=== PATIENT | female | born 1975 | race Caucasian/White ===

== ENCOUNTER 2018-03-20 10:45 | Emergency (ER) | payer OTHER ==
[2018-03-20 10:58] VITALS: BP 117/78; PULSE 68; TEMP 98; BMI 24.7
--- NOTE | 2018-03-20 11:12 | PDOC ---
History of Present Illness - General Chief Complaint: Pain, Acute Stated Complaint: BACK PAIN Time Seen by Provider: 03/20/18 11:02 History Source: Patient Exam Limitations: No Limitations - History of Present Illness Initial Comments: CHIEF COMPLAINT: 42 y/o afebrile female with PMH kidney stones/infection c/o left upper back pain since yesterday. HISTORY OF PRESENT ILLNESS: The patient states last week she had some back pain but it went away. Yesterday she developed left upper back pain and middle lower abdominal pain that she states feels like the kidney infection she had in the past. She also admits to nausea. She denies fever, chills, ZIMMERMAN, v/d, CP, SOB, hematuria, dysuria. She took an Advil yesterday with no relief. Vital signs on arrival are within normal limits. REVIEW OF SYSTEMS: GENERAL/CONSTITUTIONAL: No fever/chills. No weakness. No weight change. HEAD, EYES, EARS, NOSE AND THROAT: No change in vision. No ear pain or discharge. No sore throat. CARDIOVASCULAR: No chest pain or shortness of breath. RESPIRATORY: No cough, wheezing, or hemoptysis. GASTROINTESTINAL: +nausea. +lower middle abdominal pain. No vomiting, diarrhea or constipation. GENITOURINARY: No dysuria, frequency, or change in urination. MUSCULOSKELETAL: No joint or muscle swelling or pain. No neck or back pain. SKIN: No rash or easy bruising. NEUROLOGIC: No headache, vertigo, loss of consciousness, or loss of sensation. PHYSICAL EXAM: GENERAL: The patient is awake, alert, and fully oriented, in no acute distress. She is well appearing, ambulatory, in NAD or obvious discomfort. HEAD: Normal with no signs of trauma. ENT: Pupils equal, round and reactive to light, extraocular movements intact, sclera anicteric, conjunctiva clear. Neck supple. LUNGS: Clear to auscultation bilaterally. Normal excursion. No respiratory distress or use of accessory muscles. CV: RRR, S1/S2, no MRG. Cap refill < 2 sec. ABDOMEN: Soft, non-distended, minimal suprapubic TTP, no hepatomegaly or splenomegaly, no masses. No flank pain. No rebound, guarding or rigidity. BACK: No CVA TTP b/l. Reproducible pain with palpation of lumbar paravertebral area, L1-L2 EXTREMITIES: Normal range of motion, no edema. NEUROLOGICAL: Normal speech, normal gait. CN II-XII grossly intact. SKIN: Warm, dry, normal turgor, no rashes or lesions noted. Past History - Past Medical History Allergies/Adverse Reactions: Allergies Allergy/AdvReac Type Severity Reaction Status Date / Time No Known Allergies Allergy Verified 03/20/18 10:54 Home Medications: Ambulatory Orders Ibuprofen 800 mg PO TID PRN #20 tablet 09/20/16 COPD: No Other medical history: denies. - Suicide/Smoking/Psychosocial Hx Smoking History: Never smoked Hx Alcohol Use: No Drug/Substance Use Hx: No *Physical Exam - Vital Signs Last Vital Signs Temp Pulse Resp BP Pulse Ox 98 F 68 19 117/78 99 03/20/18 10:54 03/20/18 10:54 03/20/18 10:54 03/20/18 10:54 03/20/18 10:54 ED Treatment Course - LABORATORY CBC & Chemistry Diagram: 03/20/18 11:20 03/20/18 11:20 Medical Decision Making - Medical Decision Making A/P: 42 y/o female with suprapubic and left back pain. Concerned for UTI, pyelo, kidney stone, musculoskeletal pain. Plan is as follows: 1. Labs 2. UA/culture/hcg 3. IV fluids 4. IV ofirmev and toradol 5. Kidney ultrasound Labs unremarkable. No UTI UA with 2+ blood and 23 RBCs Kidney ultrasound IMPRESSION: Minimal to mild right hydronephrosis. 0.8cm non obstructing right renal calculus. Left kidney normal. Most likely renal colic secondary to passed stone. Patient feels better. Explained all results. Will discharge to home with instructions to take Motrin for pain, drink plenty of fluids and f/u with Dr. De La Garza within 1 week. Pt instructed to return to the ER with any worsening or concerning symptoms. The patient verbalizes understanding of all instructions, has no further questions and is awaiting discharge. *DC/Admit/Observation/Transfer Diagnosis at time of Disposition: Renal colic on left side - Discharge Dispostion Disposition: HOME Condition at time of disposition: Improved - Referrals Referrals: Lashell Lagos MD [Primary Care Provider] - Chris De La Garza MD., MD [Staff Physician] - 1 week - Patient Instructions Printed Discharge Instructions: Kidney Stones -- Adult Additional Instructions: Discharge Instructions: -You have blood in your urine. -You most likely passed a small kidney stone -Everything else was normal -Please take 600mg of over the counter Ibuprofen every 6 hours with food for pain -Drink at least 64oz of water daily -Follow up with Dr. Lagos and Dr. De La Garza within 1 week -Return to the ER with any worsening or concerning symptoms Instrucciones de descarga: -Tienes sergio en tu orina. -Usted probablemente pas un pequeo clculo renal - Todo lo dems era normal - [place] 600 mg de Ibuprofeno sin receta cada 6 horas con alimentos para el dolor -Karen al menos 64 onzas de agua al da -Siga con el Dr. Lagos y el Dr. De La Garza en 1 semana -Volver a la anastacio de urgencias con cualquier empeoramiento o sntomas Print Language: LEBANESE - Post Discharge Activity Forms/Work/School Notes: Back to Work
[2018-03-20] MEDS ORDERED: ACETAMINOPHEN 1000 MG/100 ML VIAL (NON FORMULARY) IVPB ONE (11:55)
[2018-03-20] MEDS ORDERED: SODIUM CHLORIDE 1,000 ML IV STA (12:00)
[2018-03-20] MEDS ORDERED: ACETAMINOPHEN INJECTION 100 ML IVPB ONE (12:03)
[2018-03-20 12:09] LABS: BASO % 0.8 % (0-2.0); EOS % 6.8 % (0-4.5); HEMATOCRIT 37.8 % (32.4-45.2); HEMOGLOBIN 12.1 GM/dL (10.7-15.3); LYMPH % 34.7 % (8-40); MCH 27.3 pg (25.7-33.7); MEAN CELL VOLUME 85.5 fl (80-96); MEAN PLT VOLUME 9.4 fl (7.5-11.1); MONO % 7.2 % (3.8-10.2); NEUT % 50.5 % (42.8-82.8); PLATELET COUNT 281 K/MM3 (134-434); RBC 4.42 M/mm3 (3.60-5.2); RDW 13.6 % (11.6-15.6); WHITE BLOOD COUNT 7.9 K/mm3 (4.0-10.0)
[2018-03-20 12:19] LABS: URINE APPEARANCE CLOUDY; URINE BILIRUBIN NEGATIVE (<2.0 mg/dL); URINE BLOOD 2+ (NEGATIVE); URINE COLOR YELLOW; URINE GLUCOSE (UA) NEGATIVE (NEGATIVE); URINE KETONE NEGATIVE (NEGATIVE); URINE LEUK ESTERASE NEGATIVE (NEGATIVE); URINE NITRITE NEGATIVE (NEGATIVE); URINE PROTEIN NEGATIVE (NEGATIVE); URINE UROBILINOGEN NEGATIVE mg/dL (0.2-1.0)
[2018-03-20 12:24] LABS: EPI CELLS MODERATE /HPF (FEW); URINE HYALINE CAST 4 /lpf; URINE MUCUS MANY
[2018-03-20 12:29] LABS: HCG,QUALITATIVE URINE NEGATIVE
[2018-03-20] MEDS ORDERED: KETOROLAC TROMETHAMINE 30 MG/1 ML VIAL IVPUSH ONE (12:31)
[2018-03-20 12:33] LABS: ALK PHOS 56 U/L (45-117); ANION GAP 5 (8-16); BILIRUBIN,TOTAL 0.3 mg/dL (0.2-1.0); BLOOD UREA NITROGEN 14 mg/dL (7-18); CALCIUM 8.6 mg/dL (8.5-10.1); CHLORIDE 103 mmol/L (98-107); CO2 29 mmol/L (21-32); CREATININE 0.6 mg/dL (0.55-1.02); GLUCOSE,RANDOM 86 mg/dL (74-106); POTASSIUM 3.7 mmol/L (3.5-5.1); SGOT/AST 12 U/L (15-37); SGPT/ALT 17 U/L (12-78); SODIUM 137 mmol/L (136-145); TOT PROT 8.9 g/dl (6.4-8.2)
[2018-03-20] MEDS ORDERED: KETOROLAC TROMETHAMINE 30 MG/1 ML VIAL ONE (13:00)
== END 2018-03-20 14:27 | disposition home or self-care (01) ==
LOC: JER 10:45
PROC: 3E0337Z Introduction of Electrolytic and Water Balance Substance into Peripheral Vein, Percutaneous Approach (ICD-10-PCS; principal; 2018-03-20)
PROC: 3E033NZ Introduction of Analgesics, Hypnotics, Sedatives into Peripheral Vein, Percutaneous Approach (ICD-10-PCS; 2018-03-20)
PROC: 3E0333Z Introduction of Anti-inflammatory into Peripheral Vein, Percutaneous Approach (ICD-10-PCS; 2018-03-20)
DX: N13.2 Hydronephrosis with renal and ureteral calculous obstruction (principal); Z87.442 Personal history of urinary calculi
CPT/HCPCS: 36415; 76775-TC; 80053; 81003; 81015; 84703; 85025; 87086; 96361; 96374; 96375; 99284-25; J0131; J7030

== ENCOUNTER 2018-05-03 10:53 | Observation (INO) | payer OTHER ==
[2018-05-03 10:59] VITALS: BMI 25.7
--- NOTE | 2018-05-03 11:23 | PDOC ---
History of Present Illness <James Figueredo - Last Filed: 05/03/18 11:23> - General History Source: Patient Exam Limitations: No Limitations - History of Present Illness Initial Comments: 05/03/18 12:21 The patient is a 42-year-old female, with a past medical history of prediabetes and kidney stones, who presents to the ED with 3 days of right-sided abdominal pain. The patient states that the pain is constant, 10\10, radiating to her right flank, with associated nausea and dizziness. The patient denies any vomiting, diarrhea, melena, hematochezia, anorexia. Patient reports noting a small amount of blood in her urine yesterday. The patient denies any dysuria, frequency, or urgency. Denies any fever or chills. Denies shortness of breath and chest pain. Allergies: NKA Surgical History: None reported Social History: The patient reports social alcohol use. She denies any tobacco or drug use. PCP: Dr. Lashell Lagos <Farnaz Cardona - Last Filed: 05/03/18 13:38> <Gabriel Mir - Last Filed: 05/03/18 17:45> - General Chief Complaint: Pain Stated Complaint: BACK PAIN Time Seen by Provider: 05/03/18 11:23 Past History - Past Medical History COPD: No Kidney Stones: Yes - Suicide/Smoking/Psychosocial Hx Smoking History: Never smoked Have you smoked in the past 12 months: No Information on smoking cessation initiated: No Hx Alcohol Use: No Drug/Substance Use Hx: No Substance Use Type: None <James Figueredo - Last Filed: 05/03/18 11:23> <Farnaz Cardona - Last Filed: 05/03/18 13:38> <Gabriel Mir - Last Filed: 05/03/18 17:45> - Past Medical History Allergies/Adverse Reactions: Allergies Allergy/AdvReac Type Severity Reaction Status Date / Time No Known Allergies Allergy Verified 05/03/18 10:54 Home Medications: Ambulatory Orders Ibuprofen 800 mg PO TID PRN #20 tablet 09/20/16 Review of Systems - Review of Systems Able to Perform ROS?: Yes Comments:: 05/03/18 12:22 CONSTITUTIONAL: No fever, no chills, no fatigue EYES: No visual changes ENT: No ear pain, no sore throat CARDIOVASCULAR: No chest pain, no palpitations RESPIRATORY: No cough, no SOB GI: (+)Nausea, right-sided abdominal pain. No vomiting, no constipation, no diarrhea GENITOURINARY: No dysuria, no frequency, no hematuria MUSKULOSKELETAL: (+)Right-sided flank pain. No joint pain. SKIN: No rash NEURO: (+)Dizziness. No headache <Farnaz Cardona - Last Filed: 05/03/18 13:38> *Physical Exam - Vital Signs Last Vital Signs Temp Pulse Resp BP Pulse Ox 98.4 F 69 18 113/62 100 05/03/18 10:55 05/03/18 10:55 05/03/18 10:55 05/03/18 10:55 05/03/18 10:55 <James Figueredo - Last Filed: 05/03/18 11:23> - Vital Signs Last Vital Signs Temp Pulse Resp BP Pulse Ox 98.4 F 69 18 113/62 100 05/03/18 10:55 05/03/18 10:55 05/03/18 10:55 05/03/18 10:55 05/03/18 10:55 - Physical Exam Comments: 05/03/18 12:26 CONSTITUTIONAL: Well-appearing; well-nourished; in no apparent distress HEAD: Normocephalic; atraumatic EYES: PERRL; EOM intact ENMT: External appears normal; normal oropharynx NECK: Supple; non-tender; no cervical lymphadenopathy CARD: Normal S1, S2; no murmurs, rubs, or gallops RESP: Normal chest excursion with respiration; breath sounds clear and equal bilaterally; no wheezes, rhonchi, or rales ABD: (+)Right upper quadrant tenderness, mild right lower quadrant tenderness. Soft, non-distended; no palpable organomegaly, no palpable hernias MSK: (+)Right CVA tenderness. EXT: Normal ROM in all four extremities; non-tender to palpation; distal pulses intact SKIN: Warm, dry, no rash NEURO: No focal neurological deficiencies. <Farnaz Cardona - Last Filed: 05/03/18 13:38> - Vital Signs Last Vital Signs Temp Pulse Resp BP Pulse Ox 98.4 F 66 18 97/66 98 05/03/18 10:55 05/03/18 15:36 05/03/18 15:36 05/03/18 15:36 05/03/18 15:36 <Gabriel Mir - Last Filed: 05/03/18 17:45> ED Treatment Course - LABORATORY CBC & Chemistry Diagram: 05/03/18 11:58 05/03/18 11:58 - ADDITIONAL ORDERS Additional order review: Laboratory Results 05/03/18 11:58 Urine Color Ltyellow Urine Appearance Clear Urine pH 7.0 D Ur Specific [place] 1.014 Urine Protein Negative Urine Glucose (UA) Negative Urine Ketones Negative Urine Blood 3+ H Urine Nitrite Negative Urine Bilirubin Negative Urine Urobilinogen Negative Ur Leukocyte Esterase Negative Urine HCG, Qual Negative 05/03/18 11:58 RBC 4.15 MCV 85.6 MCHC 32.5 RDW 14.3 MPV 9.9 Neutrophils % 57.0 Lymphocytes % 25.4 D Monocytes % 7.2 Eosinophils % 9.5 H Basophils % 0.9 - Medications Given in the ED: ED Medications Discontinued Medications Generic Name Dose Route Start Last Admin Trade Name Wily PRN Reason Stop Dose Admin Ketorolac Tromethamine 15 mg 05/03/18 11:39 05/03/18 11:56 Toradol Injection - IVPUSH 05/03/18 11:40 15 mg ONCE ONE Administration <Farnaz Cardona - Last Filed: 05/03/18 13:38> - LABORATORY CBC & Chemistry Diagram: 05/03/18 11:58 05/03/18 11:58 - ADDITIONAL ORDERS Additional order review: Laboratory Results 05/03/18 05/03/18 11:58 11:58 Sodium 137 Potassium 4.1 Chloride 102 Carbon Dioxide 29 Anion Gap 6 L BUN 10 Creatinine 0.6 Creat Clearance w eGFR > 60 Random Glucose 85 Calcium 8.8 Total Bilirubin 0.3 AST 15 ALT 19 Alkaline Phosphatase 50 Total Protein 7.9 Albumin 3.5 Urine Color Ltyellow Urine Appearance Clear Urine pH 7.0 D Ur Specific [place] 1.014 Urine Protein Negative Urine Glucose (UA) Negative Urine Ketones Negative Urine Blood 3+ H Urine Nitrite Negative Urine Bilirubin Negative Urine Urobilinogen Negative Ur Leukocyte Esterase Negative Urine WBC (Auto) 19 Urine RBC (Auto) 166 Ur Epithelial Cells Few Urine Bacteria Rare Urine Mucus Few Urine HCG, Qual Negative 05/03/18 11:58 RBC 4.15 MCV 85.6 MCHC 32.5 RDW 14.3 MPV 9.9 Neutrophils % 57.0 Lymphocytes % 25.4 D Monocytes % 7.2 Eosinophils % 9.5 H Basophils % 0.9 - Medications Given in the ED: ED Medications Discontinued Medications Generic Name Dose Route Start Last Admin Trade Name Wily PRN Reason Stop Dose Admin Sodium Chloride 500 mls @ 500 mls/hr 05/03/18 11:39 05/03/18 11:56 Normal Saline - IV 05/03/18 12:38 500 mls/hr ASDIR STA Administration Ceftriaxone Sodium 1,000 mg/ 50 mls @ 100 mls/hr 05/03/18 16:19 05/03/18 16: 29 Dextrose IVPB 05/03/18 16:48 100 mls/hr ONCE ONE Administration Ketorolac Tromethamine 15 mg 05/03/18 11:39 05/03/18 11:56 Toradol Injection - IVPUSH 05/03/18 11:40 15 mg ONCE ONE Administration <Gabriel Mir - Last Filed: 05/03/18 17:45> *DC/Admit/Observation/Transfer <James Figueredo - Last Filed: 05/03/18 11:23> <Farnaz Cardona - Last Filed: 05/03/18 13:38> - Discharge Dispostion Decision to Admit order: Yes <Gabriel Mir - Last Filed: 05/03/18 17:45> Diagnosis at time of Disposition: Kidney stone - Referrals Referrals: Lashell Lagos MD [Primary Care Provider] - - Patient Instructions - Post Discharge Activity
[2018-05-03] MEDS ORDERED: KETOROLAC TROMETHAMINE 15 MG/ML VIAL IVPUSH ONE (11:39)
[2018-05-03] MEDS ORDERED: SODIUM CHLORIDE 500 ML IV STA (11:39)
[2018-05-03] MEDS ORDERED: KETOROLAC TROMETHAMINE 15 MG/ML VIAL ONE (11:47)
[2018-05-03 12:09] LABS: BASO % 0.9 % (0-2.0); EOS % 9.5 % (0-4.5); HEMATOCRIT 35.5 % (32.4-45.2); HEMOGLOBIN 11.5 GM/dL (10.7-15.3); LYMPH % 25.4 % (8-40); MCH 27.9 pg (25.7-33.7); MCHC 32.5 g/dl (32.0-36.0); MEAN CELL VOLUME 85.6 fl (80-96); MEAN PLT VOLUME 9.9 fl (7.5-11.1); MONO % 7.2 % (3.8-10.2); PLATELET COUNT 233 K/MM3 (134-434); RBC 4.15 M/mm3 (3.60-5.2); RDW 14.3 % (11.6-15.6); WHITE BLOOD COUNT 10.1 K/mm3 (4.0-10.0)
[2018-05-03 12:13] LABS: HCG,QUALITATIVE URINE NEGATIVE
[2018-05-03 12:16] LABS: URINE APPEARANCE CLEAR; URINE BILIRUBIN NEGATIVE (<2.0 mg/dL); URINE COLOR LTYELLOW; URINE GLUCOSE (UA) NEGATIVE (NEGATIVE); URINE KETONE NEGATIVE (NEGATIVE); URINE LEUK ESTERASE NEGATIVE (NEGATIVE); URINE NITRITE NEGATIVE (NEGATIVE); URINE PROTEIN NEGATIVE (NEGATIVE); URINE UROBILINOGEN NEGATIVE mg/dL (0.2-1.0)
[2018-05-03 12:21] LABS: EPI CELLS FEW /HPF (FEW); URINE BACTERIA RARE /hpf (NONE SEEN); URINE MUCUS FEW
[2018-05-03 12:26] LABS: ALBUMIN 3.5 g/dl (3.4-5.0); ANION GAP 6 (8-16); BLOOD UREA NITROGEN 10 mg/dL (7-18); CALCIUM 8.8 mg/dL (8.5-10.1); CHLORIDE 102 mmol/L (98-107); CO2 29 mmol/L (21-32); CREATININE 0.6 mg/dL (0.55-1.02); GLUCOSE,RANDOM 85 mg/dL (74-106); POTASSIUM 4.1 mmol/L (3.5-5.1); SGOT/AST 15 U/L (15-37); SGPT/ALT 19 U/L (12-78); SODIUM 137 mmol/L (136-145)
[2018-05-03 12:28] LABS: ALK PHOS 50 U/L (45-117); BILIRUBIN,TOTAL 0.3 mg/dL (0.2-1.0); TOT PROT 7.9 g/dl (6.4-8.2)
[2018-05-03] MEDS ORDERED: CEFTRIAXONE 1,000 MG in DEXTROSE 5%-WATER - 50 ML IVPB ONE (16:19)
[2018-05-03] MEDS ORDERED: CEFTRIAXONE 1 GM/50 ML BAG ONE (16:22)
[2018-05-03] MEDS ORDERED: SODIUM CHLORIDE 1,000 ML IV SCH (17:45)
[2018-05-03] MEDS ORDERED: KETOROLAC TROMETHAMINE 15 MG/ML VIAL IVPUSH PRN (17:45)
[2018-05-03] MEDS ORDERED: ACETAMINOPHEN 325 MG TABLET (FP) PO PRN (17:49)
--- NOTE | 2018-05-03 18:53 | HP ---
CHIEF COMPLAINT: " R sided abdominal pain" HISTORY OF PRESENT ILLNESS: Patient is a 42 y/o female with a history of kidney stones and prediabetes who presents for right sided abdominal pain. She has been having this pain for 3 days and it is worsening. She was here for similar pain 2 months ago but was not admitted. She describes the pain as sharp and radiating from her R lower back to her RLQ. She took one ibuprofen that helped a little. Patient did not find that anything made the pain worse. She rates the pain a 9/10. She states her urine has been red but she has also been drinking beet juice. She states she is nauseous and dizzy. Patient has no other complaints. ER course was notable for: (1) ceftriaxone for WBC of 19 (2) (3) Recent Travel: PAST MEDICAL HISTORY: kidney stones, prediabetes PAST SURGICAL HISTORY: hysterectomy Social History: Smoking: denies Alcohol: social Drugs: denies Sexual: pt reports multiple partners, no use of protection, no history of STD's Family History: Allergies No Known Allergies Allergy (Verified 05/03/18 10:54) HOME MEDICATIONS: Home Medications Medication Instructions Recorded Ibuprofen 800 mg PO TID PRN #20 tablet 09/20/16 REVIEW OF SYSTEMS CONSTITUTIONAL: Absent: fever, chills, diaphoresis, generalized weakness, malaise HEENT: Absent: throat pain, throat swelling,visual changes CARDIOVASCULAR: Absent: chest pain, syncope, palpitations, RESPIRATORY: Absent: cough, shortness of breath, wheezing GASTROINTESTINAL:abdominal pain, nausea Absent: abdominal distension, vomiting, diarrhea, constipation, melena, hematochezia GENITOURINARY: Absent: dysuria, frequency, urgency, hesitancy, hematuria, flank pain, genital pain MUSCULOSKELETAL: back pain Absent: myalgia, arthralgia, joint swelling, SKIN: Absent: rash, itching, pallor NEUROLOGIC: dizziness Absent: headache, focal weakness or paresthesias PHYSICAL EXAMINATION Vital Signs - 24 hr 05/03/18 05/03/18 10:55 15:36 Temperature 98.4 F Pulse Rate 69 Pulse Rate [ 66 Right Radial] Respiratory 18 18 Rate Blood Pressure 113/62 Blood Pressure 97/66 [Left Arm] O2 Sat by Pulse 100 98 Oximetry (%) GENERAL: Awake, alert, and fully oriented, in no acute distress. HEAD: Normal with no signs of trauma. EYES: Pupils equal, round and reactive to light EARS, NOSE, THROAT: oropharynx clear without exudates. Moist mucous membranes. NECK: Normal range of motion LUNGS: Breath sounds equal, clear to auscultation bilaterally. HEART: Regular rate and rhythm ABDOMEN: Soft, tenderness to palpation on RU upper and lower quadrant, not distended, negative CVA tenderness MUSCULOSKELETAL: Normal range of motion at all jointss. NEUROLOGICAL: Normal speech. Normal gait. PSYCHIATRIC: Cooperative. Good eye contact. SKIN: Warm, dry, normal turgor, no rashes or lesions noted, normal capillary refill. Laboratory Results - last 24 hr 05/03/18 05/03/18 05/03/18 11:58 11:58 11:58 WBC 10.1 H RBC 4.15 Hgb 11.5 Hct 35.5 MCV 85.6 MCH 27.9 MCHC 32.5 RDW 14.3 Plt Count 233 MPV 9.9 Absolute Neuts (auto) 5.8 Neutrophils % 57.0 Lymphocytes % 25.4 D Monocytes % 7.2 Eosinophils % 9.5 H Basophils % 0.9 Nucleated RBC % 0 Sodium 137 Potassium 4.1 Chloride 102 Carbon Dioxide 29 Anion Gap 6 L BUN 10 Creatinine 0.6 Creat Clearance w eGFR > 60 Random Glucose 85 Calcium 8.8 Total Bilirubin 0.3 AST 15 ALT 19 Alkaline Phosphatase 50 Total Protein 7.9 Albumin 3.5 Urine Color Ltyellow Urine Appearance Clear Urine pH 7.0 D Ur Specific [place] 1.014 Urine Protein Negative Urine Glucose (UA) Negative Urine Ketones Negative Urine Blood 3+ H Urine Nitrite Negative Urine Bilirubin Negative Urine Urobilinogen Negative Ur Leukocyte Esterase Negative Urine WBC (Auto) 19 Urine RBC (Auto) 166 Ur Epithelial Cells Few Urine Bacteria Rare Urine Mucus Few Urine HCG, Qual Negative ASSESSMENT/PLAN: Patient is a 42 y/o female with a history of kidney stones and prediabetes who presents for 7mm R ureteral stone. #R Kidney stone - CT can: 7 mm stone mid ureteral calculus - Dr. Molina consulted, will see patient in the morning - pt NPO after midnight - continue fluids NS @ 100 (2 bags ordered) - Ceftriaxone 1 gm daily (day 1 today) - Toradol 15 mg Q6H prn - acetaminophen 650 mg prn - pt afebrile - no history of lithotripsy in the past - UA WBC: 19, negative leukocyte esterase #DVT ppx - SCD's #FEN - continue fluids NS @ 100 (2 bags ordered) - replete lytes as necessary in AM - regular diet now, NPO after midnight #Disposition - obs medsurg Visit type - Emergency Visit Emergency Visit: Yes Care time: The patient presented to the Emergency Department on the above date and was hospitalized for further evaluation of their emergent condition. - New Patient This patient is new to me today: Yes Date on this admission: 05/03/18 - Critical Care Critical Care patient: No Hospitalist Screening - Colonoscopy Questionnaire Colonoscopy Questionnaire: Colonoscopy Questionnaire - Patient: 50 - 75 years old and never had a screening colonoscopy: Unknown History of colon or rectal polyps, or CA: Unknown History of IBD, Crohn's disease or UC: Unknown History of abdominal radiation therapy as a child: Unknown - Relative: 1 with colon or rectal CA, or polyps at age 60 or younger: Unknown Colon or rectal CA diagnosed at age 45 or younger: Unknown Multiple relatives with colon or rectal CA: Unknown - Outcome: Screening Result: Negative Screen
--- NOTE | 2018-05-03 19:43 | PN ---
Teaching Attending Note Name of Resident: Windy Ye ATTENDING PHYSICIAN STATEMENT I saw and evaluated the patient. I reviewed the resident's note and discussed the case with the resident. I agree with the resident's findings and plan as documented. SUBJECTIVE: Patient is a 42 y/o female with a history of kidney stones , with hx of prediabetes who presents for right sided abdominal pain. She has been having this pain for [facility] 3 days wit progression. No fever or chills, no shortness of breath. OBJECTIVE: Vital Signs Temperature 98.4 F 05/03/18 10:55 Pulse Rate 66 05/03/18 15:36 Respiratory Rate 18 05/03/18 15:36 Blood Pressure 97/66 05/03/18 15:36 O2 Sat by Pulse Oximetry (%) 98 05/03/18 15:36 CBCD WBC 10.1 K/mm3 (4.0-10.0) H 05/03/18 11:58 RBC 4.15 M/mm3 (3.60-5.2) 05/03/18 11:58 Hgb 11.5 GM/dL (10.7-15.3) 05/03/18 11:58 Hct 35.5 % (32.4-45.2) 05/03/18 11:58 MCV 85.6 fl (80-96) 05/03/18 11:58 MCHC 32.5 g/dl (32.0-36.0) 05/03/18 11:58 RDW 14.3 % (11.6-15.6) 05/03/18 11:58 Plt Count 233 K/MM3 (134-434) 05/03/18 11:58 MPV 9.9 fl (7.5-11.1) 05/03/18 11:58 CMP Sodium 137 mmol/L (136-145) 05/03/18 11:58 Potassium 4.1 mmol/L (3.5-5.1) 05/03/18 11:58 Chloride 102 mmol/L (98-107) 05/03/18 11:58 Carbon Dioxide 29 mmol/L (21-32) 05/03/18 11:58 Anion Gap 6 (8-16) L 05/03/18 11:58 BUN 10 mg/dL (7-18) 05/03/18 11:58 Creatinine 0.6 mg/dL (0.55-1.02) 05/03/18 11:58 Creat Clearance w eGFR > 60 (>60) 05/03/18 11:58 Random Glucose 85 mg/dL (74-106) 05/03/18 11:58 Calcium 8.8 mg/dL (8.5-10.1) 05/03/18 11:58 Total Bilirubin 0.3 mg/dL (0.2-1.0) 05/03/18 11:58 AST 15 U/L (15-37) 05/03/18 11:58 ALT 19 U/L (12-78) 05/03/18 11:58 Alkaline Phosphatase 50 U/L (45-117) 05/03/18 11:58 Total Protein 7.9 g/dl (6.4-8.2) 05/03/18 11:58 Albumin 3.5 g/dl (3.4-5.0) 05/03/18 11:58 Current Medications Generic Name Dose Route Start Last Admin Trade Name Freq PRN Reason Stop Dose Admin Acetaminophen 650 mg 05/03/18 17:49 Tylenol - PO Q6H PRN MODERATE PAIN Sodium Chloride 1,000 mls @ 100 mls/hr 05/03/18 17:45 Normal Saline - IV 05/05/18 03:44 ASDIR RAQUEL Ceftriaxone Sodium 1 gm/ 100 mls @ 200 mls/hr 05/04/18 10:00 Dextrose IVPB DAILY RAQUEL Protocol Ketorolac Tromethamine 15 mg 05/03/18 17:45 Toradol Injection - IVPUSH 05/08/18 17:44 Q6H PRN PAIN LEVEL 6-10 Home Medications Medication Instructions Recorded Ibuprofen 800 mg PO TID PRN #20 tablet 09/20/16 PE: per resident' note CT can: 7 mm stone mid ureteral calculus ASSESSMENT AND PLAN: Patient is a 42 y/o female with a history of kidney stones and prediabetes who presents for 7mm R ureteral stone. #Acute right Kidney stone of 7mm, on IVF , uro consult , Dr. Molina, NPO after midnight, IV antibiotic Ceftriaxone 1 gm daily #1 day #DVT ppx: SCD's , early ambulation
[2018-05-04 07:23] LABS: HEMATOCRIT 33.3 % (32.4-45.2); MCH 28.3 pg (25.7-33.7); MCHC 33.1 g/dl (32.0-36.0); MEAN CELL VOLUME 85.6 fl (80-96); MEAN PLT VOLUME 9.4 fl (7.5-11.1); PLATELET COUNT 221 K/MM3 (134-434); RBC 3.89 M/mm3 (3.60-5.2); RDW 14.2 % (11.6-15.6)
--- NOTE | 2018-05-04 07:42 | PN ---
Physical Exam: SUBJECTIVE: aris is a 42 y/o female with a history of kidney stones and prediabetes who presents for right ureteral kidney stone. She reports some pain in her R side today. OBJECTIVE: Vital Signs Period Temp Pulse Resp BP Sys/Yi Pulse Ox Last 24 Hr 98 F-98.4 F 63-73 16-20 97-131/57-72 98-100 GENERAL: Awake, alert, and fully oriented, in no acute distress. HEAD: Normal with no signs of trauma. EYES: Pupils equal, round and reactive to light NECK: Normal range of motion LUNGS: Breath sounds equal, clear to auscultation bilaterally. HEART: Regular rate and rhythm ABDOMEN: Soft, tenderness to palpation on RU upper and lower quadrant, not distended, negative CVA tenderness MUSCULOSKELETAL: Normal range of motion at all joints. Laboratory Results - last 24 hr 05/03/18 05/03/18 05/03/18 11:58 11:58 11:58 WBC 10.1 H RBC 4.15 Hgb 11.5 Hct 35.5 MCV 85.6 MCH 27.9 MCHC 32.5 RDW 14.3 Plt Count 233 MPV 9.9 Absolute Neuts (auto) 5.8 Neutrophils % 57.0 Lymphocytes % 25.4 D Monocytes % 7.2 Eosinophils % 9.5 H Basophils % 0.9 Nucleated RBC % 0 Sodium 137 Potassium 4.1 Chloride 102 Carbon Dioxide 29 Anion Gap 6 L BUN 10 Creatinine 0.6 Creat Clearance w eGFR > 60 Random Glucose 85 Calcium 8.8 Total Bilirubin 0.3 AST 15 ALT 19 Alkaline Phosphatase 50 Total Protein 7.9 Albumin 3.5 Urine Color Ltyellow Urine Appearance Clear Urine pH 7.0 D Ur Specific [place] 1.014 Urine Protein Negative Urine Glucose (UA) Negative Urine Ketones Negative Urine Blood 3+ H Urine Nitrite Negative Urine Bilirubin Negative Urine Urobilinogen Negative Ur Leukocyte Esterase Negative Urine WBC (Auto) 19 Urine RBC (Auto) 166 Ur Epithelial Cells Few Urine Bacteria Rare Urine Mucus Few Urine HCG, Qual Negative Active Medications Generic Name Dose Route Start Last Admin Trade Name Freq PRN Reason Stop Dose Admin Acetaminophen 650 mg 05/03/18 17:49 Tylenol - PO Q6H PRN MODERATE PAIN Sodium Chloride 1,000 mls @ 100 mls/hr 05/03/18 17:45 05/03/18 21:46 Normal Saline - IV 05/05/18 03:44 100 mls/hr ASDIR RAQUEL Administration Ceftriaxone Sodium 1 gm/ 100 mls @ 200 mls/hr 05/04/18 10:00 Dextrose IVPB DAILY [facility] Protocol Ketorolac Tromethamine 15 mg 05/03/18 17:45 Toradol Injection - IVPUSH 05/08/18 17:44 Q6H PRN PAIN LEVEL 6-10 ASSESSMENT/PLAN: Patient is a 42 y/o female with a history of kidney stones and prediabetes who presents for 7mm R ureteral stone. S/P stent placement day 1. #R ureteral stone, s/p stent placement - CT can: 7 mm stone mid ureteral calculus - Dr. Molina, f/u in one week for lithotripsy - regular diet - continue fluids NS @ 100 - Ceftriaxone 1 gm daily (day 2 today) - acetaminophen 650 mg prn - pt afebrile - no history of lithotripsy in the past - UA WBC: 19, negative leukocyte esterase #DVT ppx - SCD's #FEN - continue fluids NS @ 100 - replete lytes as necessary in AM - regular diet now, NPO after midnight #Disposition - D/C tomorrow Visit type - Emergency Visit Emergency Visit: No - New Patient This patient is new to me today: No - Critical Care Critical Care patient: No
[2018-05-04 07:52] LABS: ANION GAP 8 (8-16); BLOOD UREA NITROGEN 13 mg/dL (7-18); CALCIUM 8.1 mg/dL (8.5-10.1); CHLORIDE 107 mmol/L (98-107); CO2 26 mmol/L (21-32); GLUCOSE,RANDOM 81 mg/dL (74-106); MAGNESIUM 2.1 mg/dL (1.8-2.4); POTASSIUM 4.2 mmol/L (3.5-5.1); SODIUM 141 mmol/L (136-145)
[2018-05-04 07:53] LABS: CREATININE 0.5 mg/dL (0.55-1.02); PHOSPHOROUS 3.9 mg/dL (2.5-4.9)
--- NOTE | 2018-05-04 09:54 | CON.GU ---
Consult - History of Present Illness History of Present Illness: 42 yo female with h/o nephrolithiaisis, now with rt renal colic secondary to 7mm RMU stone. Has elevated WBC and pyuria on UA - Past Medical History ...: No - Alcohol/Substance Use Hx Alcohol Use: No - Smoking History Smoking history: Never smoked Have you smoked in the past 12 months: No Home Medications - Allergies Allergies/Adverse Reactions: Allergies Allergy/AdvReac Type Severity Reaction Status Date / Time No Known Allergies Allergy Verified 05/03/18 10:54 - Home Medications Home Medications: Ambulatory Orders Ibuprofen 800 mg PO TID PRN #20 tablet 09/20/16 Review of Systems - Review of Systems Genitourinary: reports: Flank Pain, Hematuria Physical Exam- Vital Signs: Vital Signs Temperature 98.4 F 05/04/18 04:00 Pulse Rate 71 05/04/18 04:00 Respiratory Rate 20 05/04/18 04:00 Blood Pressure 131/64 05/04/18 04:00 O2 Sat by Pulse Oximetry (%) 100 05/04/18 04:00 Renal/: Yes: CVA Tenderness - Right, Hematuria Labs: CBC, BMP 05/04/18 06:00 05/04/18 06:00 Imaging - Results Cat Scan: Image Reviewed Problem List - Problems (1) Right ureteral stone Assessment/Plan: in light of elevated WBC, pyuria, stone size and prediabetic state, will plan for cysto/stent placement today. Will need lithotripsy electively once uti has resolved Code(s): N20.1 - CALCULUS OF URETER
[2018-05-04] MEDS ORDERED: CEFTRIAXONE 1 GM in DEXTROSE 5%-WATER - 100 ML IVPB SCH (10:00)
[2018-05-04] MEDS ORDERED: CEFTRIAXONE 1 GM in DEXTROSE 5%-WATER - 50 ML IVPB SCH (10:00)
[2018-05-04] MEDS ORDERED: cefTRIAXone SODIUM 1 GM VIAL ONE (10:06)
[2018-05-04] MEDS ORDERED: DEXTROSE 5%-WATER - 50 ML IVPB ONE (10:06)
[2018-05-04] MEDS ORDERED: PROPOFOL 20 ML ONE (12:58)
[2018-05-04] MEDS ORDERED: MIDAZOLAM HCL 2 MG/2 ML SINGLE DOSE VIAL ONE (12:58)
[2018-05-04] MEDS ORDERED: DEXAMETHASONE SOD PHOSPHATE 4 MG/1 ML VIAL ONE (13:07)
[2018-05-04] MEDS ORDERED: ONDANSETRON 4 MG/2 ML VIAL IVPUSH PRN (13:17)
--- NOTE | 2018-05-04 13:22 | OP ---
Operative Note - Note: Operative Date: 05/04/18 Pre-Operative Diagnosis: RMU stone Operation: cysto/rt rtg/ureteral stent placement Post-Operative Diagnosis: Same as Pre-op Anesthesia: General Estimated Blood Loss (mls): 0 Operative Report Dictated: Yes
[2018-05-04] MEDS ORDERED: SODIUM CHLORIDE 1,000 ML IV SCH (13:50)
[2018-05-04] MEDS ORDERED: ACETAMINOPHEN 325 MG TABLET (FP) PO PRN (13:50)
--- NOTE | 2018-05-04 13:52 | OP ---
DATE OF OPERATION: 05/04/2018 PREOPERATIVE DIAGNOSIS: Obstructing right mid ureteral stone with urinary tract infection. POSTOPERATIVE DIAGNOSIS: Obstructing right mid ureteral stone with urinary tract infection. PROCEDURE: Cystoscopy, retrograde pyelogram, and right ureteral stent placement. SURGEON: Arnaud Castaneda MD INDICATION: The patient is a 42-year-old female admitted with right renal colic secondary to a 7-mm stone obstructing the right mid ureter. She also had an elevated white blood cell count with evidence of a UTI. She was taken to the OR for cystoscopy and ureteral stent placement. The risks, benefits, and alternatives were discussed in detail. DESCRIPTION OF PROCEDURE: After informed consent was obtained, the patient was taken to the OR and placed supine on the OR table. After cardiac monitoring and administration of general anesthesia was established, she was prepped and draped in the dorsal lithotomy position. The 22-sheath cystoscope was into the urethra without difficulty and the bladder was visualized. No tumor or stones were noted in the bladder. Attention was turned to the right ureteral orifice and contrast was injected for a retrograde pyelogram. There was hydronephrosis down to the mid ureter where a stone was seen obstructing. The gallbladder was negotiated beyond stones into the right renal pelvis. Over the guidewire a 6-[place] 24 cm double pigtail stent was then advanced in a Freeman fashion. Fluoroscopy confirmed the stent to be in good position. The patient was then awoken from anesthesia and transferred to the recovery room in stable condition. There were no complications. Estimated blood loss was zero. Martin [id number]
[2018-05-04] MEDS: traMADol HCL 50 MG TABLET PO PRN (18:00)
--- NOTE | 2018-05-04 19:01 | PN ---
Teaching Attending Note Name of Resident: Windy Ye ATTENDING PHYSICIAN STATEMENT I saw and evaluated the patient. I reviewed the resident's note and discussed the case with the resident. I agree with the resident's findings and plan as documented. SUBJECTIVE: Patient has no fever, no chest pain or shortenss of breath. OBJECTIVE: Vital Signs Temperature 98.5 F 05/04/18 18:28 Pulse Rate 70 05/04/18 18:28 Respiratory Rate 20 05/04/18 18:28 Blood Pressure 117/58 05/04/18 18:28 O2 Sat by Pulse Oximetry (%) 100 05/04/18 16:00 CBCD WBC 9.0 K/mm3 (4.0-10.0) 05/04/18 06:00 RBC 3.89 M/mm3 (3.60-5.2) 05/04/18 06:00 Hgb 11.0 GM/dL (10.7-15.3) 05/04/18 06:00 Hct 33.3 % (32.4-45.2) 05/04/18 06:00 MCV 85.6 fl (80-96) 05/04/18 06:00 MCHC 33.1 g/dl (32.0-36.0) 05/04/18 06:00 RDW 14.2 % (11.6-15.6) 05/04/18 06:00 Plt Count 221 K/MM3 (134-434) 05/04/18 06:00 MPV 9.4 fl (7.5-11.1) 05/04/18 06:00 CMP Sodium 141 mmol/L (136-145) 05/04/18 06:00 Potassium 4.2 mmol/L (3.5-5.1) 05/04/18 06:00 Chloride 107 mmol/L (98-107) 05/04/18 06:00 Carbon Dioxide 26 mmol/L (21-32) 05/04/18 06:00 Anion Gap 8 (8-16) 05/04/18 06:00 BUN 13 mg/dL (7-18) 05/04/18 06:00 Creatinine 0.5 mg/dL (0.55-1.02) L 05/04/18 06:00 Creat Clearance w eGFR > 60 (>60) 05/04/18 06:00 Random Glucose 81 mg/dL (74-106) 05/04/18 06:00 Calcium 8.1 mg/dL (8.5-10.1) L 05/04/18 06:00 Total Bilirubin 0.3 mg/dL (0.2-1.0) 05/03/18 11:58 AST 15 U/L (15-37) 05/03/18 11:58 ALT 19 U/L (12-78) 05/03/18 11:58 Alkaline Phosphatase 50 U/L (45-117) 05/03/18 11:58 Total Protein 7.9 g/dl (6.4-8.2) 05/03/18 11:58 Albumin 3.5 g/dl (3.4-5.0) 05/03/18 11:58 Current Medications Generic Name Dose Route Start Last Admin Trade Name Freq PRN Reason Stop Dose Admin Acetaminophen 650 mg 05/04/18 13:50 05/04/18 15:26 Tylenol - PO 650 mg Q6H PRN Administration MODERATE PAIN Ceftriaxone Sodium 1 gm/ 50 mls @ 100 mls/hr 05/05/18 10:00 Dextrose IVPB DAILY RAQUEL Protocol Sodium Chloride 1,000 mls @ 100 mls/hr 05/04/18 13:50 05/04/18 14:00 Normal Saline - IV 05/05/18 03:44 200 mls ASDIR RAQUEL Administration Tramadol HCl 50 mg 05/04/18 17:21 05/04/18 18:00 Ultram - PO 50 mg Q8H PRN Administration PAIN LEVEL 6-10 Home Medications Medication Instructions Recorded Ibuprofen 800 mg PO TID PRN #20 tablet 09/20/16 Urine Test Results Urine Color Ltyellow 05/03/18 11:58 Urine Appearance Clear 05/03/18 11:58 Urine pH 7.0 (5.0-8.0) D 05/03/18 11:58 Ur Specific [place] 1.014 (1.001-1.035) 05/03/18 11:58 Urine Protein Negative (NEGATIVE) 05/03/18 11:58 Urine Glucose (UA) Negative (NEGATIVE) 05/03/18 11:58 Urine Ketones Negative (NEGATIVE) 05/03/18 11:58 Urine Blood 3+ (NEGATIVE) H 05/03/18 11:58 Urine Nitrite Negative (NEGATIVE) 05/03/18 11:58 Urine Bilirubin Negative (<2.0 mg/dL) 05/03/18 11:58 Ur Leukocyte Esterase Negative (NEGATIVE) 05/03/18 11:58 Ur Epithelial Cells Few /HPF (FEW) 05/03/18 11:58 Urine Bacteria Rare /hpf (NONE SEEN) 05/03/18 11:58 Urine Mucus Few 05/03/18 11:58 Laboratory Tests 05/03/18 11:58 Ur Leukocyte Esterase Negative Urine WBC (Auto) 19 Urine RBC (Auto) 166 PE: per resident' note CT can: 7 mm stone mid ureteral calculus ASSESSMENT AND PLAN: Patient is a 42 y/o female with a history of kidney stones and prediabetes who presents for 7mm R ureteral stone. #Acute right Kidney stone of 7mm, s/p cysto/ with ureteral stent placement by dr. Castaneda , continue IVF , IV antibiotic Ceftriaxone 1 gm daily #2 day in light of elevated WBC, pyuria, stone size and prediabetic state, plan lithotripsy electively once uti has resolved as per . Tramadol for pain #DVT ppx: SCD's , early ambulation
[2018-05-05] MEDS: traMADol HCL 50 MG TABLET PO PRN ×2 (01:57→10:27)
[2018-05-05 07:48] LABS: BLOOD UREA NITROGEN 11 mg/dL (7-18); CALCIUM 8.4 mg/dL (8.5-10.1); CHLORIDE 107 mmol/L (98-107); CREATININE 0.5 mg/dL (0.55-1.02); GLUCOSE,RANDOM 103 mg/dL (74-106); POTASSIUM 4.1 mmol/L (3.5-5.1); SODIUM 138 mmol/L (136-145)
[2018-05-05 07:55] LABS: ANION GAP 7 (8-16); CO2 24 mmol/L (21-32)
--- NOTE | 2018-05-05 09:17 | DS ---
Physical Exam: SUBJECTIVE: Patient is a 42 y/o female with a history of kidney stones and prediabetes who presents for right ureteral kidney stone. S/P stent placement. She will receive one does of Ceftriaxone and be discharged. OBJECTIVE: Vital Signs Period Temp Pulse Resp BP Sys/Yi Pulse Ox Last 24 Hr 97.8 F-98.5 F 58-88 14-20 90-129/52-79 95-100 PHYSICAL EXAM GENERAL: Awake, alert, and fully oriented, in no acute distress. HEAD: Normal with no signs of trauma. EYES: Pupils equal, round and reactive to light NECK: Normal range of motion LUNGS: Breath sounds equal, clear to auscultation bilaterally. HEART: Regular rate and rhythm ABDOMEN: Soft, tenderness to palpation on RU upper and lower quadrant, not distended, negative CVA tenderness MUSCULOSKELETAL: Normal range of motion at all joints. LABS Laboratory Results - last 24 hr 05/05/18 06:00 Sodium 138 Potassium 4.1 Chloride 107 Carbon Dioxide 24 Anion Gap 7 L BUN 11 Creatinine 0.5 L Creat Clearance w eGFR > 60 Random Glucose 103 Calcium 8.4 L HOSPITAL COURSE: Date of Admission:05/03/18 Patient is a 42 y/o female with a history of kidney stones and prediabetes who presents for nausea and R sided abdominal pain. Patient was afebrile and vitals were stable Patient had a CT scan that showed a 7 mm R ureteral stone. UA had 19 WBC. She was started on Ceftriaxone 1 gm. On 05/04 Dr. Castaneda (Urology) placed a R ureteral stent. Patient will follow up with him in one week to have a lithotripsy done. Patient received one more dose of Ceftriaxone IV 1 gm. Patient will continue Ceftin 500 mg BID for 5 days. Patient discharged home. UCX: negative Date of Discharge: 05/05/18 Minutes to complete discharge: 40 Discharge Summary Reason For Visit: CALCULUS OF KIDNEY Current Active Problems Kidney stone (Acute) Right ureteral stone (Acute) Condition: Improved - Instructions Diet, Activity, Other Instructions: You came to the ED because you had right sided abdominal pain. Imaging ( CT scan ) of your abdomen was done and showed you had a 7mm stone in your right ureter. The urologist, Dr. Molina, placed a stent in your right ureter. You will follow up with him outpatient to have another procedure preformed ( lithotripsy) to help break up the stone. You should follow up with him within one week. You were also found to have a UTI and you were treated with antibiotics. You will continue to take Ceftin 500 mg by mouth twice a day for 5 days to complete treatment. You should follow up with your primary care physician within one week. You should return to the ED if you have any worsening of symptoms, headache, vomiting, chest pain, or shortness of breath. Referrals: Lashell Lagos MD [Primary Care Provider] - Arnaud Castaneda MD [Staff Physician] - 1 Week Disposition: HOME - Home Medications Comprehensive Discharge Medication List: Ambulatory Orders Cefuroxime Axetil [Ceftin -] 500 mg PO BID #10 tablet 05/05/18 This patient is new to me today: No Emergency Visit: No Critical Care patient: No - Discharge Referral Referred to [facility] No
--- NOTE | 2018-05-05 09:37 | PN ---
Teaching Attending Note Name of Resident: Windy Ye ATTENDING PHYSICIAN STATEMENT I saw and evaluated the patient. I reviewed the resident's note and discussed the case with the resident. I agree with the resident's findings and plan as documented. SUBJECTIVE: Patient is feeling better, less pain than yesterday. OBJECTIVE: Vital Signs Temperature 98.1 F 05/05/18 05:48 Pulse Rate 58 L 05/05/18 05:48 Respiratory Rate 20 05/05/18 05:48 Blood Pressure 108/61 05/05/18 05:48 O2 Sat by Pulse Oximetry (%) 100 05/04/18 20:00 CBCD WBC 9.0 K/mm3 (4.0-10.0) 05/04/18 06:00 RBC 3.89 M/mm3 (3.60-5.2) 05/04/18 06:00 Hgb 11.0 GM/dL (10.7-15.3) 05/04/18 06:00 Hct 33.3 % (32.4-45.2) 05/04/18 06:00 MCV 85.6 fl (80-96) 05/04/18 06:00 MCHC 33.1 g/dl (32.0-36.0) 05/04/18 06:00 RDW 14.2 % (11.6-15.6) 05/04/18 06:00 Plt Count 221 K/MM3 (134-434) 05/04/18 06:00 MPV 9.4 fl (7.5-11.1) 05/04/18 06:00 CMP Sodium 138 mmol/L (136-145) 05/05/18 06:00 Potassium 4.1 mmol/L (3.5-5.1) 05/05/18 06:00 Chloride 107 mmol/L (98-107) 05/05/18 06:00 Carbon Dioxide 24 mmol/L (21-32) 05/05/18 06:00 Anion Gap 7 (8-16) L 05/05/18 06:00 BUN 11 mg/dL (7-18) 05/05/18 06:00 Creatinine 0.5 mg/dL (0.55-1.02) L 05/05/18 06:00 Creat Clearance w eGFR > 60 (>60) 05/05/18 06:00 Random Glucose 103 mg/dL (74-106) 05/05/18 06:00 Calcium 8.4 mg/dL (8.5-10.1) L 05/05/18 06:00 Total Bilirubin 0.3 mg/dL (0.2-1.0) 05/03/18 11:58 AST 15 U/L (15-37) 05/03/18 11:58 ALT 19 U/L (12-78) 05/03/18 11:58 Alkaline Phosphatase 50 U/L (45-117) 05/03/18 11:58 Total Protein 7.9 g/dl (6.4-8.2) 05/03/18 11:58 Albumin 3.5 g/dl (3.4-5.0) 05/03/18 11:58 Current Medications Generic Name Dose Route Start Last Admin Trade Name Freq PRN Reason Stop Dose Admin Acetaminophen 650 mg 05/04/18 13:50 05/04/18 15:26 Tylenol - PO 650 mg Q6H PRN Administration MODERATE PAIN Ceftriaxone Sodium 1 gm/ 50 mls @ 100 mls/hr 05/05/18 10:00 Dextrose IVPB DAILY RAQUEL Protocol Tramadol HCl 50 mg 05/04/18 17:21 05/05/18 01:57 Ultram - PO 50 mg Q8H PRN Administration PAIN LEVEL 6-10 Home Medications Medication Instructions Recorded Cefuroxime Axetil [Ceftin -] 500 mg PO BID #10 tablet 05/05/18 PE: per resident's note, No CVA tenderness CT can: 7 mm stone mid ureteral calculus ASSESSMENT AND PLAN: Patient is a 42 y/o female with a history of kidney stones and prediabetes who presents for 7mm Right ureteral stone. #Acute right Kidney stone of 7mm, s/p cysto/ with ureteral stent placement by dr. Castaneda , IV antibiotic Ceftriaxone 1 gm daily #3 today . will discharge her on oral antibiotic for 5 more days , plan lithotripsy electively once uti has resolved as per . will discharge the pain home. discahrge time 35m
[2018-05-05] MEDS ORDERED: DEXTROSE 5%-WATER - 50 ML IVPB ONE (09:45)
[2018-05-05] MEDS ORDERED: cefTRIAXone SODIUM 1 GM VIAL ONE (09:45)
[2018-05-05] MEDS ORDERED: CEFTRIAXONE 1 GM in DEXTROSE 5%-WATER - 50 ML IVPB SCH (10:00)
[2018-05-05 10:39] VITALS: BP 131/63; PULSE 69; TEMP 98.7
--- NOTE | 2018-05-05 13:52 | EKG ---
Test Reason : Blood Pressure : / mmHG Vent. Rate : 066 BPM Atrial Rate : 066 BPM P-R Int : 132 ms QRS Dur : 072 ms QT Int : 370 ms P-R-T Axes : 038 048 055 degrees QTc Int : 387 ms NORMAL SINUS RHYTHM NONSPECIFIC T WAVE ABNORMALITY ABNORMAL ECG WHEN COMPARED WITH ECG OF 20-SEP-2016 11:28, NO SIGNIFICANT CHANGE WAS FOUND Confirmed by BRENDA BHANDARI MD ([id number]) on 05/05/2018 1:51:59 PM Referred By: SAM GONZALEZ DR Confirmed By:BRENDA BHANDARI MD
== END 2018-05-05 12:00 | disposition home or self-care (01) ==
LOC: JER 10:53 → JERBED 17:45 → J7W 20:37
PROVIDERS: ADMIT Internal Medicine; ATTEND Internal Medicine
PROC: 0T7D8DZ Dilation of Urethra with Intraluminal Device, Via Natural or Artificial Opening Endoscopic (ICD-10-PCS; principal; 2018-05-03)
PROC: BT1DZZZ Fluoroscopy of Right Kidney, Ureter and Bladder (ICD-10-PCS; 2018-05-03)
PROC: 3E03329 Introduction of Other Anti-infective into Peripheral Vein, Percutaneous Approach (ICD-10-PCS; 2018-05-03)
PROC: 3E0333Z Introduction of Anti-inflammatory into Peripheral Vein, Percutaneous Approach (ICD-10-PCS; 2018-05-03)
PROC: 3E033NZ Introduction of Analgesics, Hypnotics, Sedatives into Peripheral Vein, Percutaneous Approach (ICD-10-PCS; 2018-05-03)
DX: N13.2 Hydronephrosis with renal and ureteral calculous obstruction (principal); N39.0 Urinary tract infection, site not specified; D72.829 Elevated white blood cell count, unspecified; R73.03 Prediabetes; Z87.442 Personal history of urinary calculi
CPT/HCPCS: 36415; 74176; 76000-TC-FY; 76705-TC; 76775-TC; 80048; 80053; 81003; 81015; 83735; 84100; 84703; 85025; 85027; 87086; 93005; 93010; 94760; 96365; 96375; 96376; 99284-25; G0378; J7030